=== PATIENT | female | born 1930 | race American Indian/Alaskan Native ===

== ENCOUNTER 2017-06-12 21:40 | Observation (INO) | payer OTHER ==
--- NOTE | 2017-06-12 21:53 | ED PDOC ---
Arrival/HPI - General Time Seen by Provider: 06/12/17 21:46 Historian: Patient, EMS - History of Present Illness Narrative History of Present Illness (Text): 06/12/17 21:52 eKrry Tobin is an 87 year old female, whose past medical history includes hypertension, hyperlipidemia, and osteoporosis, who presents to the Emergency department brought in by EMS for rapid heart rate, palpitations, and vague chest discomfort tonight. Patient noted to be in rapid rhythm by EMS and was given Adenosine followed by Cardizem for rapid atrial fibrillation with a rate of 200. Patient's heart rate slowed down and is currently in NSR. Patient denies any fever, chills, leg pain, shortness of breath, nausea, vomiting, neck pain, headache, dizziness, or any other complaints. Patient denies any chest pain currently. Patient notes she has experienced similar episodes in the past that resolved on its own but did not follow up with a earth science faculty member. PMD: Dr. Santosh Hodge Symptom Onset: Gradual Symptom Course: Unchanged Activities at Onset: Light Context: Home Past Medical History - Provider Review Nursing Documentation Reviewed: Yes Family/Social History - Physician Review Nursing Documentation Reviewed: Yes Family/Social History: Unknown Family HX Allergies/Home Meds Allergies/Adverse Reactions: Allergies Penicillins Allergy (Verified 06/12/17 22:03) RASH Review of Systems - Physician Review All systems were reviewed & negative as marked: Yes - Review of Systems Constitutional: Normal. absent: Fevers Eyes: Normal ENT: Normal Respiratory: Normal. absent: SOB, Cough Cardiovascular: Chest Pain, Palpitations Gastrointestinal: Normal. absent: Abdominal Pain, Diarrhea, Nausea, Vomiting Genitourinary Female: Normal. absent: Dysuria, Frequency, Hematuria, Urine Output Changes Musculoskeletal: Normal. absent: Back Pain, Neck Pain Skin: Normal. absent: Rash Neurological: Other (+near-syncopal) Endocrine: Normal Hemo/Lymphatic: Normal Psychiatric: Normal Physical Exam Vital Signs Reviewed: Yes Vital Signs Pulse Resp Pulse Ox 06/12/17 22:03 75 16 99 Temperature: Afebrile Blood Pressure: Normal Pulse: Regular Respiratory Rate: Normal Appearance: Positive for: Well-Appearing, Non-Toxic, Comfortable Pain Distress: None Mental Status: Positive for: Alert and Oriented X 3 - Systems Exam Head: Present: Atraumatic, Normocephalic Pupils: Present: PERRL Extroacular Muscles: Present: EOMI Conjunctiva: Present: Normal Mouth: Present: Moist Mucous Membranes Neck: Present: Normal Range of Motion Respiratory/Chest: Present: Clear to Auscultation, Good Air Exchange. No: Respiratory Distress, Accessory Muscle Use Cardiovascular: Present: Regular Rate and Rhythm, Normal S1, S2. No: Murmurs Abdomen: Present: Normal Bowel Sounds. No: Tenderness, Distention, Peritoneal Signs Back: Present: Normal Inspection Upper Extremity: Present: Normal Inspection. No: Cyanosis, Edema Lower Extremity: Present: Normal Inspection. No: Edema Neurological: Present: GCS=15, CN II-XII Intact, Speech Normal Skin: Present: Warm, Dry, Normal Color. No: Rashes Psychiatric: Present: Alert, Oriented x 3, Normal Insight, Normal Concentration Medical Decision Making ED Course and Treatment: 06/12/17 21:52 Impression: 87 year old female complaining of rapid heart rate, palpitations, and vague chest discomfort tonight. Plan: -- EKG -- Chest X-ray -- Labs, cardiac enzymes, thyroid profile -- Reassess and disposition Progress Notes: Reviewed EKG, NSR at 89 bpm. 1st degree AV block. LVH. Inferior infarct. Non- specific ST/T wave changes. 06/13/17 03:03 Reviewed radiology, Chest X-ray shows no acute processes. Labs reviewed. Potassium: 3.1. Potassium chloride ordered. 06/13/17 03:[address] Barton, who is aware and agrees with plan. Accepts pt in his service. Pt will go to Telemetry observation for chest pain and paroxysmal atrial fibrillation. Requests Dr. New on consult. - Lab Interpretations Lab Results: 06/12/17 21:59 06/12/17 21:59 Lab Results 06/12/17 21:59: WBC 13.3 H, RBC 4.57, Hgb 12.8, Hct 40.2, MCV 88.0, MCH 28.0, MCHC 31.8, RDW 16.8 H, Plt Count 311, MPV 9.8 06/12/17 21:59: Free T4 1.26, TSH 3rd Generation 1.62 06/12/17 21:59: Sodium 141, Potassium 3.1 L, Chloride 104, Carbon Dioxide 28, Anion Gap 12, BUN 18, Creatinine 1.1, Est GFR ( Amer) 57, Est GFR (Non- Af Amer) 47, Random Glucose 101, Calcium 8.8, Total Bilirubin 0.5, AST 46 H, ALT 47, Alkaline Phosphatase 87, Lactate Dehydrogenase 745 H, Total Creatine Kinase 60, Troponin I 0.03, Total Protein 6.8, Albumin 3.7, Globulin 3.1, Albumin/Globulin Ratio 1.2 06/12/17 21:59: PT 10.9, INR 1.01, APTT 25.9 I have reviewed the lab results: Yes - RAD Interpretation Radiology Orders: 06/12/17 22:03 CHEST PORTABLE [RAD] Stat Computer Programmer Analyst: ED Physician - EKG Interpretation Interpreted by ED Physician: Yes Type: 12 lead EKG - Medication Orders Current Medication Orders: Discontinued Medications Potassium Chloride (K-Dur 20 Meq Er Tab) 40 meq PO STAT STA Stop: 06/13/17 03:04 - Scribe Statement The provider has reviewed the documentation as recorded by the Scribe Kinjal Willingham All medical record entries made by the Scribe were at my direction and personally dictated by me. I have reviewed the chart and agree that the record accurately reflects my personal performance of the history, physical exam, medical decision making, and the department course for this patient. I have also personally directed, reviewed, and agree with the discharge instructions and disposition. Disposition/Present on Arrival - Present on Arrival Any Indicators Present on Arrival: No History of DVT/PE: No History of Uncontrolled Diabetes: No Urinary Catheter: No History of Decub. Ulcer: No History Surgical Site Infection Following: None - Disposition Have Diagnosis and Disposition been Completed?: Yes Diagnosis: Paroxysmal atrial fibrillation with rapid ventricular response, Chest pain Disposition: HOSPITALIZED Disposition Time: 03:13 Patient Plan: Observation Condition: STABLE Discharge Instructions (ExitCare): Chest Pain (ED) Referrals: Rianna Hodge MD [Primary Care Provider] - Follow up with primary
[2017-06-12 22:03] VITALS: BMI 26.0
[2017-06-12 22:25] LABS: HEMATOCRIT 40.2 % (36.0-48.0); MEAN CORPUSCULAR HGB CONC 31.8 g/dl (31.0-37.0); MEAN PLATELET VOLUME 9.8 fl (7.0-11.0); RED CELL DISTRIBUTION WIDTH 16.8 % (11.5-14.5); WHITE BLOOD COUNT 13.3 10^3/ul (4.5-11.0)
[2017-06-12 22:31] LABS: ALB/GLOB RATIO 1.2 (1.1-1.8); BILIRUBIN,TOTAL 0.5 mg/dL (0.2-1.3); CALCIUM 8.8 mg/dL (8.4-10.5); POTASSIUM 3.1 mmol/L (3.6-5.0); TOTAL PROTEIN 6.8 g/dL (5.8-8.3)
[2017-06-12 22:32] LABS: INR 1.01 (0.93-1.08); PARTIAL THROMBOPLASTIN TIME 25.9 Seconds (23.7-30.8)
[2017-06-12 22:42] LABS: TROPONIN I 0.03 ng/mL
[2017-06-12 22:48] LABS: FREE T4 1.26 ng/dL (0.78-2.19)
[2017-06-12 23:01] LABS: THYROID STIMULATING HORMONE 1.62 mIU/mL (0.46-4.68)
[2017-06-13] MEDS ORDERED: Potassium Chloride 20 mEq ER Tab PO STA (03:03)
[2017-06-13] MEDS: Pantoprazole 40 mg EC Tab PO SCH (10:23)
--- NOTE | 2017-06-13 11:28 | RAD ---
HISTORY: palpitations COMPARISON: No prior. FINDINGS: LUNGS: No active pulmonary disease. PLEURA: No significant pleural effusion identified, no pneumothorax apparent. CARDIOVASCULAR: There is borderline cardiomegaly. No pulmonary vascular derangement appreciated. OSSEOUS STRUCTURES: No significant abnormalities. VISUALIZED UPPER ABDOMEN: Normal. OTHER FINDINGS: Mild right hemidiaphragm elevation is identified. IMPRESSION: Borderline cardiomegaly. No acute infiltrate or pleural effusion bilaterally. Mildly elevated right hemidiaphragm noted.
[2017-06-13 12:37] LABS: ALB/GLOB RATIO 1.2 (1.1-1.8); ALKALINE PHOSPHATASE 67 U/L (38-126); ALT/SGPT 35 U/L (7-56); AST/SGOT 30 U/L (14-36); BILIRUBIN,TOTAL 0.9 mg/dL (0.2-1.3); BLOOD UREA NITROGEN 13 mg/dL (7-21); CALCIUM 8.5 mg/dL (8.4-10.5); CARBON DIOXIDE 29 mmol/L (21-33); CHLORIDE 104 mmol/L (98-107); GFR AFRICAN-AMERICAN > 60; GLUCOSE,RANDOM 92 mg/dL (70-110); POTASSIUM 3.9 mmol/L (3.6-5.0); SODIUM 140 mmol/L (132-148); TOTAL PROTEIN 6.4 g/dL (5.8-8.3)
[2017-06-13 12:48] LABS: TROPONIN I 0.03 ng/mL
--- NOTE | 2017-06-13 15:58 | HP ---
CHIEF COMPLAINT AND HISTORY OF PRESENT ILLNESS: This is an 87-year-old female who is coming to the hospital with past medical history of hypertension, dyslipidemia, complaining of weakness, and chest discomfort. She was having palpitations. She said when she was brought in by EMS, the patient had a heart rate of 200 and she was in atrial fibrillation. In the ambulance, she received adenosine followed by Cardizem. This helped to improve her heart rate and she went back to sinus rhythm. She feels well this morning. She said this is a second episode that she has had. She has no complaints of any chest pain, no shortness of breath, she has no nausea, no vomiting, no dysuria or frequency, no nocturia, no weakness to the arms or legs. REVIEW OF SYSTEMS: All other review of `are within normal limits, except that was mentioned. ALLERGIES: PENICILLIN, SHE HAS A RASH. HOME MEDICATIONS: Ibuprofen, Atorvastatin, amlodipine/benazepril, lansoprazole, metoprolol, potassium, prednisone 5 mg, Sulfasalazine, vitamin D, [place], . SOCIAL HISTORY: The patient denies smoking and drinking. FAMILY HISTORY: Noncontributory. PAST MEDICAL HISTORY: Hypertension, dyslipidemia, osteoarthritis. PHYSICAL EXAMINATION VITAL SIGNS: Temperature is 98.6, pulse of 75, respirations 16, O2 saturation 99%. GENERAL: The patient lying in bed, uncomfortable, and in no acute distress. HEENT: Atraumatic and normocephalic. Anicteric sclerae. Moist mucosa. Broseley conjunctivae. No oral lesions. NECK: No JVD, anterior and posterior adenopathy, thyromegaly, or bruits. CARDIOVASCULAR: S1 and S2 regular. No murmur, rubs, or gallop. LUNGS: Clear to auscultation bilaterally. No wheezes, rales, or rhonchi. ABDOMEN: Bowel sounds are positive. Soft, nontender and nondistended. No hepatosplenomegaly. No rebound and no guarding EXTREMITIES: No cyanosis, clubbing, or edema. NEUROLOGIC: No facial asymmetry. Tongue is midline. No uvula deviation. Power is 5/5 upper extremity and lower extremity. Sensation intact in upper extremity and lower extremity. PSYCHIATRIC: She is awake, alert and oriented x3. No anxiety or depression. She has normal affect. GENITOURINARY: No CVA tenderness. VASCULAR: 2+ pulses in the carotid pulses and pedal pulses. SKIN: No erythema or nodules SPINE: Shows normal curvature. EXTREMITIES: No Cyanosis and clubbing, no edema. LABORATORY DATA: White count of 13.3, hemoglobin of 12.8, platelet count is 311. Potassium is 3.1, creatinine is 1.1. Chest x-ray done shows no infiltrates. ASSESSMENT: 1. Atrial fibrillation with rapid rate. 2. Hypertension. 3. Dyslipidemia. 4. Osteoarthritis. 5. Hypokalemia. PLAN: The patient is currently comfortable. She is back in sinus rhythm. She had a chest x-ray done that shows no infiltrates. This is her second episode. She had blood workup done that shows troponin to be negative. The patient had hypokalemia and potassium was replaced. She is going to continue Norvasc, metoprolol, and adenosine for blood pressure control. She is going to be seen by Dr. New for her atrial fibrillation she had. TSH which was normal. The patient is actually brought in as an observation to telemetry. We will reevaluate as the patient has been seen by cardiology and recommendations have been made. Carlo Barton MD
--- NOTE | 2017-06-13 22:00 | CON ---
DATE: 06/13/2017 REQUESTING PHYSICIAN: Dr. Barton. REASON FOR CONSULTATION: Near syncope, paroxysmal atrial fibrillation. HISTORY OF PRESENT ILLNESS: This is an 87-year-old woman with history of hypertension, who was brought to the emergency room after developing palpitation and lightheadedness. She states that she had this occurred several times in the past, but this episodes has been fairly sporadic. Yesterday, she had 3 episodes, which occurred in succession, the longest of which was more than one hour. She felt somewhat lightheaded and had pounding in her neck at the time. She became concern and called emergency squad. Upon arrival, she is noted to be in rapid rhythm and reportedly this was atrial fibrillation. She was given IV adenosine with some improvement in her heart rate and she ultimately converted to sinus rhythm. She is currently in the emergency room, lying on stretcher. She remains in sinus rhythm at this time. She denies any other prior cardiac history. No chest pain or exertional dyspnea. She does have severe rheumatoid arthritis, which limits her activities. She has a history of hypertension, hyperlipidemia and osteoporosis as well. PAST MEDICAL HISTORY: Notable for the problems as mentioned above. She has undergone prior foot surgery, prior hysterectomy, and prior hip replacement. MEDICATIONS: She is uncertain of her home medications. SOCIAL HISTORY: She does not smoke or drink. FAMILY HISTORY: Both parents are from age-related illness. ALLERGIES: SHE HAD A REACTION TO PENICILLIN IN THE PAST. REVIEW OF SYSTEMS: A 10-point review of systems is notable mainly for problems as mentioned above. PHYSICAL EXAMINATION: GENERAL: She is a very elderly woman who appears comfortable at the present time. VITAL SIGNS: Blood pressure 150/72 with a pulse of 70, respirations are 16. She is afebrile. HEENT: Normocephalic and atraumatic. NECK: Supple. No JVD noted. CHEST: Clear to auscultation and percussion. HEART: PMI displaced laterally with a soft systolic murmur present at the lower left sternal border. ABDOMEN: Soft, nontender. Normoactive bowel sounds. EXTREMITIES: No clubbing, cyanosis, or edema. Arthritic deformities are noted. SKIN: Warm and dry. PSYCHIATRIC: Normal mood and affect. NEUROLOGIC: Alert and oriented x3. No gross motor or sensory deficits appreciable. DIAGNOSTIC DATA: Chest x-ray reveals borderline cardiac silhouette enlargement with clear lung anthony. Electrocardiogram reveals sinus rhythm with nonspecific ST-T abnormalities. White count 13.3, hemoglobin and hematocrit 12.8 and 40.2 with a platelet count of 311,000. PT and PTT are normal. Potassium 3.1. BUN and creatinine are 18 and 1.1. CK is 60 with a troponin of 0.03. TSH 1.62. IMPRESSION: 1. Paroxysmal atrial fibrillation with apparent rapid rate and significant symptoms, lightheadedness. Likely secondary to longstanding hypertensive heart disease. 2. History of hypertension. 3. History of rheumatoid arthritis. 4. Rest of the problems as noted. RECOMMENDATIONS: At this point, a low dose beta-karl has been initiated and will be continued. Hopefully, rate controlled will be adequate with this should she have recurrence of atrial fibrillation. Observation for potential excessive bradycardia with beta-karl use, will need to be planned. Potassium replacement has occurred. A consideration will need to be given to initiation of anticoagulant therapy if she has more frequent episodes of atrial fibrillation as risk of thromboembolic events will be increased. An echocardiogram will be reviewed if she has recurrent atrial fibrillation or anticoagulant therapy, it will be initiated. Thank you for this consultation. We will be happy to follow along as needed. Toni Schulz MD
--- NOTE | 2017-06-13 23:20 | CARD ---
APPROVED REPORT EKG Measurement Heart [id number] <Conclusion> Sinus rhythm with 1st degree AV block Possible Left atrial enlargement Left ventricular hypertrophy Inferior infarct, age undetermined Abnormal ECG
[2017-06-14 07:52] LABS: BASO # 0.02 K/mm3 (0.0-2.0); BASO % 0.2 % (0.0-3.0); EOS # 0.2 (0.0-0.7); EOS % 1.5 % (1.5-5.0); GRAN # 7.29 (1.4-6.5); GRAN % 60.1 % (50.0-68.0); HEMATOCRIT 37.8 % (36.0-48.0); LYMPH # 3.4 (1.2-3.4); LYMPH % 28.2 % (22.0-35.0); MEAN CELL VOLUME 88.5 fl (80.0-105.0); MEAN CORPUSCULAR HEMOGLOBIN 28.1 pg (25.0-35.0); MEAN CORPUSCULAR HGB CONC 31.7 g/dl (31.0-37.0); MEAN PLATELET VOLUME 9.4 fl (7.0-11.0); MONO # 1.2 (0.1-0.6); RED CELL DISTRIBUTION WIDTH 16.8 % (11.5-14.5); WHITE BLOOD COUNT 12.1 10^3/ul (4.5-11.0)
--- NOTE | 2017-06-14 07:55 | PN ---
DATE: 06/14/2017 HISTORY OF PRESENT ILLNESS: The patient is an 87-year-old female admitted to the hospital with palpitations. She was found to be in atrial fibrillation with rapid heart rate. She was started on low-dose beta karl and she received adenosine in the ER. Heart rate is better control now in 50s to 60s beats per minute. She was also found to have leukocytosis, elevated white count of 13,000. Differential noted. Denies any complaint. No chest pain. No shortness of breath. Evaluated by cardiology, Dr. New. REVIEW OF SYSTEMS: As per HPI. Rest of 12-point review of systems reviewed and negative. ALLERGIES: PENICILLIN. SOCIAL HISTORY: Denies any smoking. No history of alcohol abuse. FAMILY HISTORY: Noncontributory. PAST MEDICAL HISTORY: Hypertension, dyslipidemia, osteoarthritis. PAST SURGICAL HISTORY: None. PHYSICAL EXAMINATION: GENERAL: Comfortable in bed, in no acute distress. VITAL SIGNS: Temperature 98.8, heart rate is 65 per minute, respiratory rate 16 per minute. Her oxygen saturation is 98% on room air. HEENT: Head; atraumatic and normocephalic. Oral mucosa moist. NECK: Supple. CHEST: Air entry present and equal bilaterally. No added sound. CARDIOVASCULAR: S1 and S2 regular. No murmur. No gallop. ABDOMEN: Soft, nontender. No hepatosplenomegaly. EXTREMITIES: No edema. No cyanosis. SKIN: No petechiae. No rash. LABORATORY DATA: White count 13.2, hemoglobin 12.8, platelet count 311. Potassium 3.1, creatinine 0.1. IMAGING: Chest x-ray, no infiltrate. ASSESSMENT: 1. Atrial fibrillation, heart rate controlled now. 2. Hypertension. 3. Dyslipidemia. 4. Osteoarthritis. 5. Hypokalemia. 6. Leukocytosis. PLAN: We will continue cardiac medication amlodipine 5 mg daily, lisinopril 2.5 mg daily, metoprolol 50 mg p.o. b.i.d., started heart rate control on the current medications, prednisone 5 mg daily, Protonix 40 mg daily. We will send urine culture because of the leukocytosis. No obvious source of infection. Repeat the CBC and BMP. We will continue to monitor, telemonitoring looks stable, we will consider discharge. Echocardiogram need to be done as requested by cardiology. Sindhu Crane MD [facility] # [id number] MIGUEL
[2017-06-14 08:05] LABS: BLOOD UREA NITROGEN 15 mg/dL (7-21); CALCIUM 8.4 mg/dL (8.4-10.5); CARBON DIOXIDE 32 mmol/L (21-33); CHLORIDE 103 mmol/L (98-107); GFR AFRICAN-AMERICAN > 60; GLUCOSE,RANDOM 85 mg/dL (70-110); SODIUM 141 mmol/L (132-148)
[2017-06-14 08:06] LABS: POTASSIUM 3.9 mmol/L (3.6-5.0)
[2017-06-14] MEDS: Pantoprazole 40 mg EC Tab PO SCH (09:32)
[2017-06-14 12:54] LABS: URINE APPEARANCE CLEAR (CLEAR); URINE BILIRUBIN NEGATIVE (NEGATIVE); URINE BLOOD NEGATIVE (NEGATIVE); URINE COLOR YELLOW (YELLOW); URINE GLUCOSE (UA) NEGATIVE (NEGATIVE); URINE KETONE NEGATIVE (NEGATIVE); URINE LEUKOCYTE ESTERASE TRACE Leu/uL (NEGATIVE); URINE PROTEIN NEGATIVE mg/dL (<30 mg/dL)
--- NOTE | 2017-06-14 12:56 | CARD ---
APPROVED REPORT EXAM: Two-dimensional and M-mode echocardiogram with Doppler and color Doppler. INDICATION Atrial Fibrillation 2D DIMENSIONS Left Atrium (2D)4.3 (1.6-4.0cm)IVSd1.0 (0.7-1.1cm) LVDd3.7 (3.9-5.9cm)PWd1.1 (0.7-1.1cm) LVDs2.6 (2.5-4.0cm)FS (%) 30.1 % LVEF (%)58.3 (>50%) M-Mode DIMENSIONS Aortic Root3.00 (2.2-3.7cm)Aortic Cusp Exc.1.60 (1.5-2.0cm) Aortic Valve AoV Peak Orkitljv394.0cm/Michael Peak GR.5mmHg Mitral Valve MV E Uyoxtfiw56.7cm/sMV A Fnvyrkru685.0cm/sE/A ratio0.6 TDI Lateral E' Peak V6.34cm/sMedial E' Peak V3.90cm/sE/Lateral E'10.2 E/Medial E'16.6 Pulmonary Valve PV Peak Nozzrrua32.8cm/sPV Peak Grad.1mmHg Tricuspid Valve TR Peak Lzgkemto825ao/sRAP [id number] Peak Gr.38mmHg [id number] LEFT VENTRICLE The left ventricle is normal size. Proximal septal thickening is noted. The left ventricular function is normal. The left ventricular ejection fraction is within the normal range. There is normal LV segmental wall motion. RIGHT VENTRICLE The right ventricle is normal size. The right ventricular systolic function is normal. ATRIA The left atrium is mildly dilated. The right atrium size is normal. The interatrial septum is intact with no evidence for an atrial septal defect. AORTIC VALVE The aortic valve is mildly sclerotic. No aortic regurgitation is present. There is no aortic valvular stenosis. MITRAL VALVE Mitral annular calcification is mild. Mitral regurgitation is mild. TRICUSPID VALVE The tricuspid valve is normal in structure. There is moderate tricuspid regurgitation. PULMONIC VALVE The pulmonary valve is normal in structure. GREAT VESSELS The aortic root is normal in size. The IVC is normal in size and collapses >50% with inspiration. PERICARDIAL EFFUSION There is no pleural effusion. There is no pericardial effusion. <Conclusion> Dilated LA. Normal LV size and systolic function. Basal septal hypertrophy. Mild MR. Moderate TR.
[2017-06-14 13:01] LABS: URINE RBC 0 - 2 /hpf (0-2); URINE WBC 0 - 2 /hpf (0-6)
--- NOTE | 2017-06-14 15:02 | PN ---
DATE: 06/14/2017 SUBJECTIVE: The patient is seen sitting in a chair on telemetry. She is currently comfortable. She has had no recurrence of her atrial fibrillation. An echocardiogram was performed, results are pending. MEDICATIONS: Her current medications include, Lipitor 20 mg daily, metoprolol 50 mg b.i.d., Norvasc 5 mg daily, prednisone 5 mg daily, Zestril 2.5 mg daily and Protonix 40 mg daily. OBJECTIVE: GENERAL: She is a very elderly woman, appears comfortable at the present time. VITAL SIGNS: Her blood pressure is 126/60 with a pulse of 60, in sinus; respirations are 14. She is afebrile. HEENT: No JVD. CHEST: Few scattered rhonchi heard. HEART: PMI displaced laterally with systolic at the left sternal border. ABDOMEN: Soft, nontender, normoactive bowel sounds. EXTREMITIES: No edema. DIAGNOSTIC DATA: Potassium is 3.9, BUN and creatinine are 15 and 0.8. White count 12.1, hemoglobin and hematocrit 12 and 37.8 with a platelet count of 268,000. Cardiac enzymes were negative. IMPRESSION: 1. Paroxysmal atrial fibrillation, relatively symptomatic with each episode. 2. History of hypertension. 3. Rheumatoid arthritis. RECOMMENDATIONS: Given her frequent episodes of atrial fibrillation recently, attempts at rhythm control will be employed. With this in mind, metoprolol will be discontinued and sotalol 80 mg twice daily will be initiated. She will need to be observed in hospital for at least the first 2 doses and to verify there is no acute QT prolongation as a result of sotalol use. Her echocardiogram will be reviewed and further recommendations will be made based upon those results. At this time, attempts will be made to avoid anticoagulant therapy given her concomitant use of prednisone as well as nonsteroidal antiinflammatory agents; given her age, the risk of bleeding would be fairly significant. If she can be maintained in sinus rhythm, the vast majority of the time, hopefully, the need for anticoagulation can be avoided. We will continue to follow and make further recommendations. Toni Schulz MD
[2017-06-15 05:49] VITALS: TEMP 98.2; O2SAT 99
[2017-06-15] MEDS: Pantoprazole 40 mg EC Tab PO SCH (09:24)
[2017-06-15 12:34] VITALS: BP 104/57; RESP 18
[2017-06-15 14:49] VITALS: PULSE 61
--- NOTE | 2017-06-15 20:12 | PN ---
DATE: 06/15/2017 SUBJECTIVE: The patient is seen sitting in bed on telemetry. She is comfortable at the present time. She has had no recurrent atrial fibrillation. She is tolerating Sotalol at this time. CURRENT MEDICATIONS: Include, Sotalol 80 mg b.i.d., Lipitor 20 mg daily, amlodipine 5 mg daily, prednisone 5 mg daily, Protonix 40 mg daily and Zestril 2.5 mg daily. OBJECTIVE GENERAL: She is a very elderly woman, appears comfortable at the present time. VITAL SIGNS: Blood pressure 104/56, pulse of 60, in sinus, respirations are 14. She is afebrile. HEENT: No JVD. CHEST: Clear to auscultation and percussion. HEART: PMI in normal position. No pathological gallops noted. ABDOMEN: Soft, nontender with normoactive bowel sounds. EXTREMITIES: No edema. DIAGNOSTIC DATA: No blood work pending from this morning. Echocardiogram revealed dilated left atrium with normal LV size and systolic function, mild mitral regurgitation, moderate tricuspid regurgitation. IMPRESSION: 1. Paroxysmal atrial fibrillation, currently on Sotalol. 2. History of hypertension. 3. History of rheumatoid arthritis, requiring steroid therapy. RECOMMENDATION: From cardiac standpoint, she was stable for discharge home at this time. Sotalol 80 mg b.i.d. will be continued. Outpatient followup will be arranged. Given her use of steroids at advanced age, avoidance of anticoagulation will be planned for now where she has frequent episodes of recurrent atrial fibrillation. Outpatient followup has been arranged. Toni Schulz MD
--- NOTE | 2017-06-16 01:12 | CP.PCM.DIS ---
Provider - Provider Date of Admission: 06/13/17 03:07 Attending physician: Carlo Barton MD Primary care physician: Rianna Hodge MD Time Spent in preparation of Discharge (in minutes): 55 Hospital Course - Lab Results Lab Results: Micro Results 06/14/17 12:45 Urine,Clean Catch Urine Culture - Final No Growth (<1,000 CFU/ML) Most Recent Lab Values WBC 12.1 10^3/ul (4.5-11.0) H 06/14/17 07:47 RBC 4.27 10^6/uL (3.5-6.1) 06/14/17 07:47 Hgb 12.0 g/dL (12.0-16.0) 06/14/17 07:47 Hct 37.8 % (36.0-48.0) 06/14/17 07:47 MCV 88.5 fl (80.0-105.0) 06/14/17 07:47 MCH 28.1 pg (25.0-35.0) 06/14/17 07:47 MCHC 31.7 g/dl (31.0-37.0) 06/14/17 07:47 RDW 16.8 % (11.5-14.5) H 06/14/17 07:47 Plt Count 268 10^3/uL (120.0-450.0) 06/14/17 07:47 MPV 9.4 fl (7.0-11.0) 06/14/17 07:47 Gran % 60.1 % (50.0-68.0) 06/14/17 07:47 Lymph % (Auto) 28.2 % (22.0-35.0) 06/14/17 07:47 [place] % (Auto) 10.0 % (1.0-6.0) H 06/14/17 07:47 Eos % (Auto) 1.5 % (1.5-5.0) 06/14/17 07:47 Baso % (Auto) 0.2 % (0.0-3.0) 06/14/17 07:47 Gran # 7.29 (1.4-6.5) H 06/14/17 07:47 Lymph # 3.4 (1.2-3.4) 06/14/17 07:47 [place] # 1.2 (0.1-0.6) H 06/14/17 07:47 Eos # 0.2 (0.0-0.7) 06/14/17 07:47 Baso # 0.02 K/mm3 (0.0-2.0) 06/14/17 07:47 PT 10.9 Seconds (9.9-11.8) 06/12/17 21:59 INR 1.01 (0.93-1.08) 06/12/17 21:59 APTT 25.9 Seconds (23.7-30.8) 06/12/17 21:59 Sodium 141 mmol/L (132-148) 06/14/17 07:47 Potassium 3.9 mmol/L (3.6-5.0) 06/14/17 07:47 Chloride 103 mmol/L (98-107) 06/14/17 07:47 Carbon Dioxide 32 mmol/L (21-33) 06/14/17 07:47 Anion Gap 10 (10-20) 06/14/17 07:47 BUN 15 mg/dL (7-21) 06/14/17 07:47 Creatinine 0.8 mg/dL (0.5-1.4) 06/14/17 07:47 Est GFR ( Amer) > 60 06/14/17 07:47 Est GFR (Non-Af Amer) > 60 06/14/17 07:47 Random Glucose 85 mg/dL (70-110) 06/14/17 07:47 Calcium 8.4 mg/dL (8.4-10.5) 06/14/17 07:47 Total Bilirubin 0.9 mg/dL (0.2-1.3) 06/13/17 12:10 AST 30 U/L (14-36) 06/13/17 12:10 ALT 35 U/L (7-56) 06/13/17 12:10 Alkaline Phosphatase 67 U/L (38-126) 06/13/17 12:10 Lactate Dehydrogenase 745 U/L (333-699) H 06/12/17 21:59 Total Creatine Kinase 60 U/L (35-230) 06/12/17 21:59 Troponin I 0.03 ng/mL 06/13/17 12:10 Total Protein 6.4 g/dL (5.8-8.3) 06/13/17 12:10 Albumin 3.5 g/dL (3.0-4.8) 06/13/17 12:10 Globulin 3.0 gm/dL 06/13/17 12:10 Albumin/Globulin Ratio 1.2 (1.1-1.8) 06/13/17 12:10 Free T4 1.26 ng/dL (0.78-2.19) 06/12/17 21:59 TSH 3rd Generation 1.62 mIU/mL (0.46-4.68) 06/12/17 21:59 Urine Color Yellow (YELLOW) 06/14/17 12:45 Urine Appearance Clear (CLEAR) 06/14/17 12:45 Urine pH 6.0 (4.7-8.0) 06/14/17 12:45 Ur Specific [place] <= 1.005 (1.005-1.035) 06/14/17 12:45 Urine Protein Negative mg/dL (<30 mg/dL) 06/14/17 12:45 Urine Glucose (UA) Negative mg/dL (NEGATIVE) 06/14/17 12:45 Urine Ketones Negative mg/dL (NEGATIVE) 06/14/17 12:45 Urine Blood Negative (NEGATIVE) 06/14/17 12:45 Urine Nitrate Negative (NEGATIVE) 06/14/17 12:45 Urine Bilirubin Negative (NEGATIVE) 06/14/17 12:45 Urine Urobilinogen 1.0 E.U./dL (<1 E.U./dL) H 06/14/17 12:45 Ur Leukocyte Esterase Trace Dhiraj/uL (NEGATIVE) H 06/14/17 12:45 Urine RBC 0 - 2 /hpf (0-2) 06/14/17 12:45 Urine WBC 0 - 2 /hpf (0-6) 06/14/17 12:45 Ur Epithelial Cells 3 - 4 /hpf (0-5) 06/14/17 12:45 - Hospital Course Hospital Course: DATE: 06/15/2017 DISCHARGE DIAGNOSIS : 1. Atrial fibrillation, heart rate controlled now. 2. Hypertension. 3. Dyslipidemia. 4. Osteoarthritis. 5. Hypokalemia. 6. Leukocytosis. HOSPITAL COURSE: The patient is an 87-year-old female admitted to the hospital with palpitations. She was found to be in atrial fibrillation with rapid heart rate. She was started on low-dose beta karl and she received adenosine in the ER. Heart rate is better control now in 50s to 60s beats per minute. She was also found to have leukocytosis, elevated white count of 13,000. No chest pain. No shortness of breath. Evaluated by cardiology, Dr. New. Metoprolol stopped. Sotalol started. REVIEW OF SYSTEMS: As per HPI. Rest of 12-point review of systems reviewed and negative. ALLERGIES: PENICILLIN. SOCIAL HISTORY: Denies any smoking. No history of alcohol abuse. FAMILY HISTORY: Noncontributory. PAST MEDICAL HISTORY: Hypertension, dyslipidemia, osteoarthritis. PAST SURGICAL HISTORY: None. PHYSICAL EXAMINATION: GENERAL: Comfortable in bed, in no acute distress. VITAL SIGNS: reviewed. HEENT: Head; atraumatic and normocephalic. Oral mucosa moist. NECK: Supple. CHEST: Air entry present and equal bilaterally. No added sound. CARDIOVASCULAR: S1 and S2 regular. No murmur. No gallop. ABDOMEN: Soft, nontender. No hepatosplenomegaly. EXTREMITIES: No edema. No cyanosis. SKIN: No petechiae. No rash. LABORATORY DATA: White count 13.2, hemoglobin 12.8, platelet count 311. Potassium 3.1, creatinine 0.1. IMAGING: Chest x-ray, no infiltrate. Dispo : discharge home. Condition : stable. Meds : continue home meds. prescriptions for sotalol given . Sindhu Crane MD - Date & Time of H&P Date of H&P: 06/15/17 Time of H&P: 18:00 Discharge Plan - Discharge Medications Prescriptions: RX: Sotalol [Betapace] 80 mg PO BID #30 tab - Follow Up Plan Condition: STABLE Disposition: HOME/ ROUTINE Instructions: Angina (DC), Atrial Fibrillation (DC) Additional Instructions: PT to follow up with primary in one week. PT instructed to return to ED if patient experiences any chest pain, shortness of breath, prolonged nausea, changed in mental status. PT instructed to take new medication as ordered to monitor for any side effects. PT instructed to take BP daily to monitor progress. Referrals: Toni Schulz MD [Staff Provider] -
--- NOTE | 2017-06-16 01:24 | CARD ---
APPROVED REPORT EKG Measurement Heart [id number] <Conclusion> Sinus rhythm with 1st degree AV block Moderate voltage criteria for LVH, may be normal variant Inferior infarct, age undetermined Abnormal ECG
== END 2017-06-15 16:50 | disposition home or self-care (01) ==
LOC: ED 21:40 → ERH 06-13 03:07 → 2RNO 06-13 18:58
PROVIDERS: ADMIT Internal Medicine Nephrology; ATTEND Internal Medicine Nephrology
DX: I48.0 Paroxysmal atrial fibrillation (principal); I11.9 Hypertensive heart disease without heart failure; M06.9 Rheumatoid arthritis, unspecified; E87.6 Hypokalemia; M81.0 Age-related osteoporosis without current pathological fracture; E78.5 Hyperlipidemia, unspecified; M19.90 Unspecified osteoarthritis, unspecified site; D72.829 Elevated white blood cell count, unspecified; Z88.0 Allergy status to penicillin
CPT/HCPCS: 36415; 71010; 80048; 80053; 81001; 82550; 83615; 84439; 84443; 84484; 85025; 85027; 85610; 85730; 87086; 93005; 93306; 99285; G0378